=== PATIENT | male | born 1965 | race Caucasian/White ===

== ENCOUNTER 2020-08-28 09:18 | Outpatient (REF) | payer OTHER, SELFPAY ==
[2020-08-28 12:01] LABS: Anion Gap 15 (12-20); Blood Urea Nitrogen 7 mg/dL (9-16); Calcium 9.2 mg/dL (8.4-10.2); Carbon Dioxide 25 mmol/L (22-29); Chloride 105 mmol/L (96-108); Estimated Glomerular Filt Rate > 60; Glucose Random 99 mg/dL (60-115); Potassium 4.6 mmol/L (3.3-5.1); Sodium 140 mmol/L (135-145)
[2020-08-28 12:15] LABS: Erythrocyte Sedimentation Rate 7 MM/HR (0-15)
[2020-08-28 12:26] LABS: Vitamin B12 640 pg/mL (200-900)
[2020-08-28 12:27] LABS: Syphilis Screen Nonreactive (Nonreactive)
[2020-08-29 10:31] LABS: Lyme Abs Screen <0.90 index
== END 2020-08-28 09:19 | disposition home or self-care (01) ==
LOC: HO.MRI 09:18
PROVIDERS: PCP Physician Assistant; Visit Provider Psychiatry & Neurology Neurology
DX: G31.84 Mild cognitive impairment of uncertain or unknown etiology (principal)
CPT/HCPCS: 36415; 80048; 82607; 85652; 86617; 86618; 86780

== ENCOUNTER 2020-09-01 07:54 | Outpatient (REF) | payer OTHER, SELFPAY ==
--- NOTE | ~2020-09-01 | MR_ITS ---
EXAMINATION: MR BRAIN WITHOUT AND WITH CONTRAST CLINICAL INFORMATION: Brain lesion. Self-reported memory issues. Self-reported peculiar sensation in left and right hands. COMPARISON: MRI lumbar spine 03/25/2016. Report CT head 07/22/2020. TECHNIQUE: Multiplanar, multisequence MRI of the brain was obtained before and after the intravenous administration of 8.5 mL Gadavist. FINDINGS: No intracranial hemorrhage, tumors or infarcts are noted. The ventricles and sulci are normal in size and configuration. No focal parenchymal lesions of the brain are identified. The craniocervical junction and cerebellar tonsils are normal in configuration. No suspicious marrow abnormalities are identified. Normal flow-related signal intensity is noted in the major intracranial vessels and dural sinuses. Possible bilateral -type origins of the posterior cerebral arteries are noted. Susceptibility weighted images reveal no evidence of acute or chronic hemorrhage within the brain parenchyma. The orbits and globes are normal in appearance. Mild mucosal thickening is noted within the left maxillary sinus to a maximum width of 3 mm, within expected limits of normal physiologic variation. Mild mucosal thickening and minimal retained secretions are noted in scattered ethmoid air cells, within expected normal limits of physiologic variation. No mastoid effusions are identified. No abnormal enhancement of the brain is visualized. MR/MR head/brain wo/w con IMPRESSION: Normal unenhanced and [id number] MRI of the brain.
== END 2020-09-01 07:55 | disposition home or self-care (01) ==
LOC: HO.MRI 07:54
PROVIDERS: PCP Physician Assistant; Visit Provider Psychiatry & Neurology Neurology
DX: G93.9 Disorder of brain, unspecified (principal)
CPT/HCPCS: 70553; A9585

== ENCOUNTER 2021-03-03 09:59 | Outpatient (REF) | payer OTHER, SELFPAY ==
--- NOTE | ~2021-03-03 | MR_ITS ---
MR BRAIN WITHOUT AND WITH CONTRAST CLINICAL INFORMATION: Brain lesion/headache. COMPARISON: Brain MRI 09/01/2020. TECHNIQUE: Multiplanar, multisequence MRI of the brain was obtained before and after the intravenous administration of 8.5 mL Gadavist. FINDINGS: Stable appearance of apparent nonexpansile increased signal involving the anteromedial left temporal pole cortex. There is no associated enhancement. Coronal FLAIR imaging on subsequent exams would be helpful in assessing whether this finding is artifactually related to the patient's left-sided dental artifact versus reflecting true nonspecific cortical signal abnormality. There is no hydrocephalus, extra-axial surface collection, or herniation. The major flow voids at the skull base are preserved. There is no acute infarct on diffusion-weighted imaging. There is no intracranial hemorrhage on the gradient recalled echo acquisition. The midline structures are normal. The cerebellar tonsils are normally positioned. The cerebellum and brainstem are normal. The craniocervical junction is normal. Osseous marrow signal intensity is homogenous. The visualized soft tissues are unremarkable. There is mild mucosal thickening throughout the ethmoid air cells and maxillary sinuses bilaterally as well as the right frontal sinus. MR/MR head/brain wo/w con IMPRESSION: Stable appearance of apparent nonexpansile increased signal involving the anteromedial left temporal pole cortex. There is no associated enhancement. Coronal FLAIR imaging on subsequent exams would be helpful in assessing whether this finding is artifactually related to the patient's left-sided dental artifact versus reflecting true nonspecific cortical signal abnormality.
== END 2021-03-03 10:00 | disposition home or self-care (01) ==
LOC: HO.MRI 09:59
PROVIDERS: PCP Physician Assistant; Visit Provider Psychiatry & Neurology Neurology
DX: G93.9 Disorder of brain, unspecified (principal)
CPT/HCPCS: 70553; A9585